=== PATIENT | male | born 1975 | race Caucasian/White ===

== ENCOUNTER 2018-08-27 14:38 | Emergency (ER) | payer OTHER ==
--- NOTE | 2018-08-27 15:14 | ERPHSYRPT ---
- History of Present Illness Time Seen by Provider: 08/27/18 15:11 Source: patient, family Exam Limitations: no limitations Patient Subjective Stated Complaint: states left knee pain for two weeks. denies any injury. Triage Nursing Assessment: patient ambulated to room per self guarding left leg. skin w/d, color normal, resp easy. left leg warm, normal color. good pulse left foot. good cap refill. Physician History: The patient is a 42-year-old morbidly obese male with his family complaining of worsening left knee pain for the past 2-3 weeks. He does not recall any specific injury to the knee. The pain has been of a gradual onset. Last night it was significantly worse where it was hard for him to walk on it. He has been taking some ibuprofen without good relief. He has no known trauma at any time to the knee. He has no surgeries to the knee. His past medical history is significant for HTN and hypothyroidism. Method of Injury: unknown Occurred: other (3 weeks) Quality: aching Severity of Pain-Max: severe Severity of Pain-Current: moderate Lower Extremities Pain: knee: left Modifying Factors: Improves With: pain medication (ibuprofen) Allergies/Adverse Reactions: No Known Drug Allergies Allergy (Unverified 08/27/18 15:18) Home Medications: Metoprolol Succinate 100 mg [Toprol Xl 100 MG] 150 mg PO DAILY 08/27/18 [ History] Hx Tetanus, Diphtheria Vaccination/Date Given: No Hx Influenza Vaccination/Date Given: No Hx Pneumococcal Vaccination/Date Given: No - Review of Systems Constitutional: No Fever, No Chills Eyes: No Symptoms Ears, Nose, & Throat: No Symptoms Respiratory: No Cough, No Dyspnea Cardiac: No Chest Pain, No Edema, No Syncope Abdominal/Gastrointestinal: No Abdominal Pain, No Nausea, No Vomiting, No Diarrhea Genitourinary Symptoms: No Dysuria Musculoskeletal: Joint Pain Skin: No Rash Neurological: No Dizziness, No Focal Weakness, No Sensory Changes Psychological: No Symptoms Endocrine: No Symptoms Hematologic/Lymphatic: No Symptoms Immunological/Allergic: No Symptoms All Other Systems: Reviewed and Negative - Past Medical History Pertinent Past Medical History: Yes Cardiac History: Hypertension Respiratory History: Asthma Endocrine Medical History: Hypothyroidism - Past Surgical History Past Surgical History: No - Social History Smoking Status: Never smoker Exposure to second hand smoke: No Drug Use: none Patient Lives Alone: No - Nursing Vital Signs Nursing Vital Signs: Initial Vital Signs Temperature 98.6 F 08/27/18 14:42 Pulse Rate 111 H 08/27/18 14:42 Respiratory Rate 16 08/27/18 14:42 Blood Pressure 151/111 08/27/18 14:42 O2 Sat by Pulse Oximetry 98 08/27/18 14:42 Pain Scale Pain Intensity 8 - Physical Exam General Appearance: alert Eyes, Ears, Nose, Throat Exam: moist mucous membranes Neck Exam: non-tender, supple Cardiovascular/Respiratory Exam: chest non-tender, normal breath sounds, regular rate/rhythm, no respiratory distress Gastrointestinal/Abdominal Exam: non-tender, guarding Hips Exam: bilateral: normal inspection Legs Exam: bilateral leg: normal inspection Knees Exam: right knee: normal inspection, left knee: soft tissue tenderness Ankle Exam: bilateral ankle: normal inspection Foot Exam: bilateral foot: normal inspection Neuro/Tendon Exam: normal sensation, normal motor functions Mental Status Exam: alert, oriented x 3, cooperative Skin Exam: normal color, warm, dry SpO2 Interpretation: normal SpO2: 98 O2 Delivery: Room Air - Radiology Exams Left Knee X-ray Interpretation: Interpreted by me, Discussed w/ radiologist, Negative, No Fracture Ordered Tests: Active Orders 24 hr Category Date Time Status KNEE (3 VIEWS) Stat Exams 08/27/18 15:14 Taken - Progress Progress: improved Counseled pt/family regarding: need for follow-up, rad results - Departure Time of Disposition: 16:17 Departure Disposition: Home Clinical Impression: Patellar tendinitis, left knee Condition: Stable Critical Care Time: No Referrals: YOUSIF BATES [Primary Care Provider] - Additional Instructions: You have tendinitis of the lower part of your left knee. You were given Toradol 60 mg by IM in the ER. Take naproxen 500 mg 2 times a day as needed. Apply ice to the area for 15-20 minutes at a time for 3 times a day. If there is no improvement within 3 or 4 days, please see your primary medical doctor for reevaluation. Prescriptions: Naproxen 500 mg [Naprosyn 500 MG] 500 mg PO BIDPRN PRN #30 tablet MDD 2 PRN Reason: Pain
[2018-08-27] MEDS ORDERED: TORAdol 30 mg Injection IM ONE (16:16)
[2018-08-27] MEDS ORDERED: TORAdol 30 mg Injection ONE (16:22)
[2018-08-27 16:41] VITALS: BP 148/97; PULSE 72; O2SAT 97
--- NOTE | 2018-08-27 20:39 | XRAY ---
Indication: Pain. No known injury. Comparison: None 3 views of the left knee demonstrates minimal medial joint space narrowing, tiny patellar spurring, and small nonspecific suprapatellar effusion. No other bony, articular, or soft tissue abnormalities.
== END 2018-08-27 16:42 | disposition home or self-care (01) ==
LOC: ED 14:38
DX: M76.52 Patellar tendinitis, left knee (principal); Z79.899 Other long term (current) drug therapy; E66.01 Morbid (severe) obesity due to excess calories; I10 Essential (primary) hypertension; E03.9 Hypothyroidism, unspecified; J45.909 Unspecified asthma, uncomplicated
CPT/HCPCS: 73562; 96372; 99284; J1885

== ENCOUNTER 2022-03-30 10:35 | Emergency (ER) | payer BC, OTHER ==
--- NOTE | 2022-03-30 11:36 | XRAY ---
Exam: Two-view left humerus from 03/30/2022. Comparison: None. Indication: 46-year-old male fell on left arm yesterday; complains of pain in upper left arm with pain radiating down to left hand. Findings: AP internal rotation and AP external rotation images of the left humerus were obtained. I see no acute fracture of the left humerus. The left elbow joint space appears unremarkable. Minimal subchondral cyst formation is seen at the superior lateral cortical margin of the left humeral head. There appears to be some mild osteoarthritis affecting the left acromioclavicular joint. Impression: 1. No acute left humerus fracture. 2. Other incidental findings, as discussed above.
--- NOTE | 2022-03-30 11:38 | XRAY ---
Exam: 2 views of the left forearm from 03/30/2022. Comparison: None. Indication: 46-year-old male fell onto left arm yesterday; complains of pain in left upper arm radiating down to left hand. Findings: AP and lateral radiographs of the left forearm were obtained. The left radius and ulna reveal no fracture or other significant focal bone lesion. The left elbow joint space and radiocarpal joint appear unremarkable. Impression: 1. No acute fracture of the left radius or ulna is seen.
--- NOTE | 2022-03-30 11:47 | XRAY ---
Exam: 3 views of the left hand from 03/30/2022. Comparison: None. Indication: 46-year-old male fell onto left arm yesterday; complains of pain in left upper arm radiating down to left hand. Findings: AP, oblique, and lateral radiographs of the left hand were obtained. There is a tiny linear cortical density adjacent to the proximal aspect of the greater multangular bone on both the AP and oblique radiographs. This could represent an old finding. A tiny cortical avulsion injury cannot be excluded with certainty. Otherwise, there is no other evidence of acute left hand fracture or dislocation. There is a small accessory ossicle adjacent to the ulnar aspect of the carpal-first metacarpal joint space. There appears to be some mild degenerative change at the level of the distal radial ulnar joint with slight cortical erosion along the distal ulnar aspect of the radius. This appears old. Incidentally, there appears to be a negative ulnar variance. Also, there is a suggestion of a minimal exostosis along the radial aspect of the distal first metacarpal. Impression: 1. There is a tiny linear cortical density adjacent to the proximal aspect of the greater multangular bone on the left hand of uncertain significance. This could represent an old finding. A tiny cortical avulsion fracture injury is not excluded with certainty. Otherwise, no other left hand fracture or dislocation is seen. 2. Other incidental findings, as discussed above.
[2022-03-30 11:50] VITALS: O2SAT 98
--- NOTE | 2022-03-30 11:50 | ERPHSYRPT ---
- History of Present Illness Time Seen by Provider: 03/30/22 10:45 Source: patient Exam Limitations: no limitations Patient Subjective Stated Complaint: PT states "I fell last night and landed on my hand and now my hand arm and shoulder hurts." Triage Nursing Assessment: Pt prsented alert and oriented X 3, skin pwd. Pt ambulates with an uprightsteady gait, able to speak in clear full sentences. Pt holding his left arm. No defromity or bruising noted, CSM X 4 throughout. Physician History: 46-year-old male presents to our ED for evaluation of left upper extremity pain. Patient was descending a flight of steps when he lost his balance fell and landed on outstretched left arm. Patient now complains of pain at left humerus left forearm and hand. No BHT or LOC. No neck pain. Cervical spine cleared clinically. Symptoms are mild to moderate in intensity. Pain reproduced with movement and palpation. Pain improved with rest. No upper extremity numbness tingling or weakness. The fall was mechanical. Not associate with any neuro cardiovascular symptomology. No associated chest pain or shortness of breath. No nausea vomiting or diaphoresis. The fall was mechanical. Not associated with any neuro cardiovascular symptomology. No associated chest pain or shortness of breath. No nausea vomiting or diaphoresis. Occurred: yesterday Extremities Pain Location: shoulder: left, forearm: left, hand: left Modifying Factors: Improves With: movement Associated Symptoms: none (Movement and palpation) Allergies/Adverse Reactions: No Known Drug Allergies Allergy (Unverified 08/27/18 15:18) Home Medications: Metoprolol Succinate 100 mg [Toprol Xl 100 MG] 150 mg PO DAILY 08/27/18 [History] Hx Tetanus, Diphtheria Vaccination/Date Given: No Hx Influenza Vaccination/Date Given: No Hx Pneumococcal Vaccination/Date Given: No Immunizations Up to Date: Yes Travel Risk - International Travel Have you traveled outside of the country in past 3 weeks: No - Coronavirus Screening Are you exhibiting any of the following symptoms?: No Close contact with a COVID-19 positive Pt in past 14-21 Days: No - Vaccine Status Have you recieved a Covid-19 vaccination: Yes Dermatology Specialist: [facility] - Review of Systems Constitutional: No Symptoms, No Fever, No Chills Eyes: No Symptoms Ears, Nose, & Throat: No Symptoms Respiratory: No Symptoms, No Cough, No Dyspnea Cardiac: No Symptoms, No Chest Pain, No Edema, No Syncope Abdominal/Gastrointestinal: No Symptoms, No Abdominal Pain, No Nausea, No Vomiting, No Diarrhea Genitourinary Symptoms: No Symptoms, No Dysuria Musculoskeletal: No Symptoms, No Back Pain, No Neck Pain Skin: No Symptoms, No Rash Neurological: No Symptoms, No Dizziness, No Focal Weakness, No Sensory Changes Psychological: No Symptoms Endocrine: No Symptoms Hematologic/Lymphatic: No Symptoms Immunological/Allergic: No Symptoms All Other Systems: Reviewed and Negative - Past Medical History Pertinent Past Medical History: Yes Cardiac History: Hypertension Respiratory History: Asthma Endocrine Medical History: Hypothyroidism - Past Surgical History Past Surgical History: No - Social History Smoking Status: Never smoker Exposure to second hand smoke: No Drug Use: none Patient Lives Alone: No - Nursing Vital Signs Nursing Vital Signs: Initial Vital Signs Temperature 97.2 F 03/30/22 10:38 Pulse Rate 88 03/30/22 10:38 Respiratory Rate 20 03/30/22 10:38 Blood Pressure 210/118 03/30/22 10:38 O2 Sat by Pulse Oximetry 98 03/30/22 10:38 Pain Scale Pain Intensity 7 - Physical Exam General Appearance: no apparent distress, alert Eyes, Ears, Nose, Throat Exam: moist mucous membranes Neck Exam: non-tender, supple Cardiovascular/Respiratory Exam: chest non-tender, normal breath sounds, regular rate/rhythm, no respiratory distress Abdominal Exam: non-tender, No guarding Back Exam: normal inspection, No vertebral tenderness Shoulder Exam: limited ROM, pain, soft tissue tenderness, No swelling Elbow/Forearm Exam: normal ROM, bone tenderness, soft tissue tenderness, No ecchymosis Wrist Exam: normal inspection, non-tender, no evidence of injury, normal ROM Hand Exam: limited ROM, soft tissue tenderness (No scaphoid or snuffbox tenderness.), No asymmetry, No infection (Involved extremity neurovascular intact distally. Compartments soft. Cap refill less than 2 seconds.) Neuro/Tendon Exam: normal sensation, normal motor functions Mental Status Exam: alert, oriented x 3, cooperative Skin Exam: normal color, warm, dry SpO2 Interpretation: normal SpO2: 98 O2 Delivery: Room Air - Course Nursing assessment & vital signs reviewed: Yes - Radiology Exams Forearm X-ray Interpretation: Teleradiologist Report (No fracture or dislocation) Humerus X-ray Interpretation: Interpreted by me (No fracture or dislocation) Hand X-ray Interpretation: Interpreted by me (Possible multinodular fracture.) Ordered Tests: Active Orders 24 hr Category Date Time Status FOREARM Stat Exams 03/30/22 10:42 Completed HAND (MINIMUM 3 VIEWS) Stat Exams 03/30/22 10:42 Completed HUMERUS Stat Exams 03/30/22 10:42 Completed Medication Summary Discontinued Medications Generic Name Dose Route Start Last Admin Trade Name Marta PRN Reason Stop Dose Admin Ketorolac Tromethamine 30 mg 03/30/22 12:04 03/30/22 12:06 Ketorolac Tromethamine 30 Mg/Ml Inj IM 03/30/22 12:05 30 mg STAT ONE Administration Ketorolac Tromethamine Confirm 03/30/22 12:06 Ketorolac Tromethamine 30 Mg/Ml Inj Administered 03/30/22 12:07 Dose 30 mg .ROUTE .STK-MED ONE - Progress Progress: improved Progress Note: 46-year-old male status post fall. Left upper extremity pain. Left hand x-ray shows possible injury to multangular bone however this is unclear and may very well be an old injury. Patient placed in a left upper extremity sling. X-ray negative for fracture dislocation otherwise. Patient referred to orthopedic clinic for follow-up visit. Patient agrees to follow-up tomorrow as scheduled. He voices no other complaints or concerns at this time. Of note patient has no pain or tenderness in the anatomic snuffbox left upper extremity. Patient received Toradol for pain control. 03/30/22 12:20 Counseled pt/family regarding: diagnosis, need for follow-up, rad results - Departure Departure Disposition: Home Clinical Impression: Fall, Acromioclavicular joint arthritis, Negative ulnar variance, Possible multangular hand fracture, Arm pain, left Condition: Stable Critical Care Time: No Referrals: JINNY RUIZ MD [Primary Care Provider] - Follow up/PCP as directed Additional Instructions: Discharge/Care Plan QUE LYNCH was seen on 03/30/22 in the Emergency Room. The patient was counseled regarding Diagnosis,Lab results, Imaging studies, need for follow up and when to return to the Emergency Room. Prescriptions given: Discharge Note I have spoken with the patient and/or caregivers. I have explained the patient's condition, diagnosis and treatment plan based on the information available to me at this time. I have answered the patient's and/or caregiver's questions and addressed any concerns. The patient and/or caregivers have as good understanding of the patient's diagnosis, condition and treatment plan as can be expected at this point. The vital signs have been stable. The patient's condition is stable and appropriate for discharge from the emergency department. The patient will pursue further outpatient evaluation with the primary care physician or other designated or consulting physician as outlined in the discharge instructions. The patient and/or caregivers are agreeable to this plan of care and follow-up instructions have been explained in detail. The patient and/or caregivers have received these instruction. The patient/and or caregivers are aware that any significant change in condition or worsening of symptoms should prompt an immediate return to this or the closest emergency department or call 911. Outpatient Orders: Ortho Referral Time Frame: 1 Day, Facility: [facility]. Hosp, Location: [facility]
[2022-03-30] MEDS ORDERED: TORAdol 30 mg Injection IM ONE (12:04)
[2022-03-30] MEDS ORDERED: TORAdol 30 mg Injection ONE (12:06)
[2022-03-30 12:16] VITALS: BP 178/112; PULSE 73
== END 2022-03-30 12:18 | disposition home or self-care (01) ==
LOC: ED 10:35
DX: M79.602 Pain in left arm (principal); W10.9XXA Fall (on) (from) unspecified stairs and steps, initial encounter; M19.012 Primary osteoarthritis, left shoulder; R93.6 Abnormal findings on diagnostic imaging of limbs; I10 Essential (primary) hypertension; Z79.899 Other long term (current) drug therapy
CPT/HCPCS: 73060; 73090; 73130; 96372; 99283; J1885

== ENCOUNTER 2024-08-22 06:15 | Day surgery (SDC) | payer BC ==
[2024-08-22] MEDS: Lactated Ringers 1,000 ML IV SCH (06:27)
[2024-08-22 06:58] VITALS: RESP 16
[2024-08-22 07:05] LABS: Absolute Neutrophil Ct (ANC) 4.49 x10^3/uL (1.78-5.38); BASOPHIL % 0.7 % (0.2-1.2); Basophil (Absolute #) 0.05 x10^3/uL (0.01-0.08); Eosinophil % 4.6 % (0.8-7.0); Eosinophil (Absolute #) 0.31 x10^3/uL (0.04-0.54); Hematocrit 48.9 % (40.1-51.0); Hemoglobin 16.4 g/dL (13.7-17.5); IMMATURE GRAN # 0.02 x10^3u/L (0.001-0.031); IMMATURE GRAN % 0.3 % (0.001-0.429); Lymphocyte (Absolute #) 1.03 x10^3/uL (1.32-3.57); Lymphocytes % 15.2 % (21.8-53.1); Mean Cell Volume 83.7 fL (79.0-92.2); Mean Corpuscular Hemoglobin 28.1 pg (25.7-32.2); Mean Corpuscular Hgb Concent. 33.5 g/dL (32.3-36.5); Mean Platelet Volume 10.6 fL (9.4-12.4); Monocyte (Absolute #) 0.87 x10^3/uL (0.30-0.82); Monocytes % 12.9 % (5.3-12.2); Neutrophil % 66.3 % (34.0-67.9); Platelet Count 169 x10^3/uL (163-337); Red Blood Count 5.84 x10^6/uL (4.63-6.08); Red Cell Distribution Width 13.2 % (11.6-14.4); White Blood Count 6.8 x10^3/uL (4.23-9.07)
[2024-08-22 07:33] LABS: ANION GAP 13.5 MEQ/L (5-15); Creatinine 1 1.16 mg/dL (0.66-1.25); EST GLOMERULAR FILTRATION RATE 77.2 ML/MIN
[2024-08-22] MEDS ORDERED: Versed 2 MG/2 ML Injection ONE (07:48)
[2024-08-22] MEDS ORDERED: propofoL IV ONE ×2 (07:48→08:03)
[2024-08-22 08:37] VITALS: TEMP 97
[2024-08-22 08:47] VITALS: BP 121/95; PULSE 70; O2SAT 98
--- NOTE | 2024-08-23 09:48 | OP ---
SURGERY DATE/TIME: 08/22/2024 [id number] PREOPERATIVE DIAGNOSIS: Screening colonoscopy. POSTOPERATIVE DIAGNOSIS: Sigmoid colon polyp. PROCEDURE: Colonoscopy. SURGEON: Jun Christianson MD ANESTHESIA: MAC by Luan Matias CRNA ESTIMATED BLOOD LOSS: Minimal. SPECIMENS: Hot snare polypectomy from the sigmoid colon at 40 cm scope depth. DESCRIPTION OF PROCEDURE AND FINDINGS: After informed written consent was obtained, the patient was taken to the endoscopy suite. He was placed in the left lateral decubitus position and anesthesia was titrated to the desired level of consciousness. Digital rectal exam showed normal sphincter tone and no internal lesions. The scope was inserted in the rectum, and sequentially the entire colonic mucosa was traversed. The level of the cecum was reached and verified with direct visualization of the ileocecal valve. Upon entry, there was a broad-based sessile polyp in the sigmoid colon at 40 cm scope depth. It was encircled with a snare, grasped at the base, cauterized, and removed in its entirety, collected in a polyp trap and sent to Pathology. The area was hemostatic following removal. Upon withdrawal, careful mucosal inspection of all other structures revealed no gross abnormalities. The area at 40 cm was hemostatic and showed complete removal of the polyp lesion. Prior to withdrawal, retroflexion showed no internal lesions. Scope was removed and patient was transferred to the recovery room in good condition. He has been advised to follow up in 1 week for pathology results.
== END 2024-08-22 08:55 | disposition home or self-care (01) ==
LOC: SDC 06:15
PROVIDERS: ATTEND Family Medicine
DX: Z12.11 Encounter for screening for malignant neoplasm of colon (principal); D12.5 Benign neoplasm of sigmoid colon
CPT/HCPCS: 36415; 80048; 85025; 93005; J2250; J2704